=== PATIENT | female | born 1970 | race Caucasian/White ===

== ENCOUNTER 2018-01-29 18:04 | Emergency (ER) | payer OTHER ==
[2018-01-29] MEDS ORDERED: LORAZEPAM 2 MG INJ IM (19:00)
== END 2018-01-29 19:11 | disposition left against medical advice (07) ==
LOC: FTE 18:04
DX: S40.022A Contusion of left upper arm, initial encounter (principal); R40.2252 Coma scale, best verbal response, oriented, at arrival to emergency department; F17.210 Nicotine dependence, cigarettes, uncomplicated; R40.2142 Coma scale, eyes open, spontaneous, at arrival to emergency department; R40.2362 Coma scale, best motor response, obeys commands, at arrival to emergency department; R07.9 Chest pain, unspecified; Y08.89XA Assault by other specified means, initial encounter
CPT/HCPCS: 99283-25; Z7502